=== PATIENT | female | born 1990 | race Caucasian/White ===

== ENCOUNTER 2019-05-03 11:21 | Emergency (ER) | payer BC, OTHER ==
[~2019-05-03] VITALS: Ht 160 cm; Wt 89.8 kg
[2019-05-03 11:30] VITALS: BP 119/82
== END 2019-05-03 12:36 | disposition home or self-care (01) ==
LOC: ED 12:30
DX: J02.8 Acute pharyngitis due to other specified organisms (principal); B97.89 Other viral agents as the cause of diseases classified elsewhere; E03.9 Hypothyroidism, unspecified; Z90.49 Acquired absence of other specified parts of digestive tract
CPT/HCPCS: 70360; 87081; 87880; 99284

== ENCOUNTER 2019-07-22 17:06 | Emergency (ER) | payer SELFPAY ==
[~2019-07-22] VITALS: Ht 160 cm; Wt 92.7 kg
[~2019-07-22 17:06] MED LIST: birth control PO; levothyroxine PO
--- NOTE | 2019-07-22 17:25 | NUR ---
THIS IS A 29 YEAR OLD FEMALE WHO C.O N/V, HEADACHE WITH STIFFNESS IN NECK X 4 DAYS. PT HAS HX OF MENIGITIES X 3 YEARS AGO
[2019-07-22] MEDS ORDERED: SODIUM CHLORIDE 0.9% 1,000 ML IV ONE (17:40)
[2019-07-22] MEDS ORDERED: ACETAMINOPHEN 500 MG TABLET ONE (17:50)
[2019-07-22] MEDS ORDERED: SODIUM CHLORIDE FLUSH 10ML SYR IVF ONE (18:00)
[2019-07-22] MEDS ORDERED: ACETAMINOPHEN 500 MG TABLET PO ONE (18:00)
[2019-07-22] MEDS ORDERED: SODIUM CHLORIDE 0.9% 1,000ML IVBOLUS ONE (18:00)
[2019-07-22 18:11] LABS: ALANINE AMINOTRANSFERASE 26 U/L (12-78); ALBUMIN 3.8 g/dL (3.4-5.0); ANION GAP 7 mmol/L (5-15); CALCIUM 8.7 mg/dL (8.5-10.1); CHLORIDE 108 mmol/L (98-107)
[2019-07-22 18:13] LABS: BASOPHILS # (AUTO) 0.01 x10^3/uL (0-0.1); BASOPHILS % (AUTO) 0 % (0-1); EOSINOPHILS % (AUTO) 1 % (1-7); LYMPHOCYTES # (AUTO) 0.46 x10^3/uL (1-3.4); LYMPHOCYTES % (AUTO) 4 % (22-44); MD NO; MEAN CORPUSCULAR HEMOGLOBIN 32.3 pg (27.0-34.8); MEAN CORPUSCULAR HGB CONC 34.1 g/dL (32.4-35.8); MEAN CORPUSCULAR VOLUME 94.7 fL (80-100); MEAN PLATELET VOLUME 8.7 fL (7.4-10.4); MONOCYTES # (AUTO) 0.22 x10^3/uL (0.2-0.8); MONOCYTES % (AUTO) 2 % (2-9); NEUTROPHILS # (AUTO) 11.28 x10^3/uL (1.8-6.8); NEUTROPHILS % (AUTO) 94 % (42-75); PLATELET COUNT 246 x10^3/uL (130-400); RED BLOOD COUNT 4.47 x10^6/uL (3.82-5.3); RED CELL DISTRIBUTION WIDTH 12.1 % (9.6-15.2)
[2019-07-22 18:15] LABS: ALKALINE PHOSPHATASE 92 U/L (45-117); BILIRUBIN,TOTAL 0.5 mg/dL (0.2-1.0); CREATININE 0.78 mg/dL (0.55-1.02); TOTAL PROTEIN 7.4 g/dL (6.4-8.2)
[2019-07-22 18:16] LABS: MICROSCOPIC INDICATED
[2019-07-22 18:17] LABS: CULTURE INDICATED? YES
[2019-07-22 18:28] LABS: RAPID INFLUENZA A Negative (Negative); RAPID INFLUENZA B Negative (Negative)
[2019-07-22] MEDS ORDERED: LIDOCAINE-MPF 1%, 5ML ONE (18:57)
--- NOTE | 2019-07-22 19:01 | NUR ---
RNx2 in hallway (bedside report restricted by isolation.) Received report of present concern, plan of care. Assumed patient care.
--- NOTE | 2019-07-22 19:32 | NUR ---
Midlevel and primary provider at bedside for lumbar puncture. Provided second pair of sterile gloves. Patient resting awaiting results of lumbar puncture labs and cmp/cbc
[2019-07-22 19:58] LABS: GLUCOSE, CSF 73 mg/dL (40-80); TOTAL PROTEIN,CSF 31 mg/dL (15-45)
[2019-07-22] MEDS ORDERED: KETOROLAC 30 MG/1 ML ONE (20:18)
--- NOTE | 2019-07-22 21:01 | NUR ---
Provided medication per MAR. Patient asking questions on results. Informed that laboratory still processing lumbar puncture fluid. Verbalized understanding. Patient disconnected from monitor, VSS. Ambulated well with friend to bathroom.
[2019-07-22 21:45] VITALS: BP 117/60
== END 2019-07-22 21:47 | disposition home or self-care (01) ==
LOC: ED 21:41
DX: N30.00 Acute cystitis without hematuria (principal); B34.9 Viral infection, unspecified; R73.9 Hyperglycemia, unspecified; R50.9 Fever, unspecified; R51 Headache
CPT/HCPCS: 36415; 62270; 80053; 81001; 82945; 83605; 84145; 84157; 84703; 85025; 87040; 87070; 87086; 87205; 87400; 89051; 99284; J7030

== ENCOUNTER 2019-08-24 21:12 | Emergency (ER) | payer MEDICAID, OTHER ==
[~2019-08-24] VITALS: Ht 160 cm; Wt 92.9 kg
[2019-08-24 21:21] VITALS: BP 148/89
--- NOTE | 2019-08-24 21:32 | NUR ---
PT C/O EXTERNAL RIGHT EAR PAIN FOR MANY YEARS, INTERMITTENTLY. PT NOTICED IT BEGIN TODAY. DENIES TRAUMA, DENIES HEARING CHANGES.
[2019-08-24] MEDS ORDERED: SULFAMETH./TRIMETHOPRIM DS 800MG/160MG TABLET ONE (21:53)
[2019-08-24] MEDS ORDERED: CEPHALEXIN 500 MG CAPSULE ONE (21:53)
--- NOTE | 2019-08-24 21:55 | NUR ---
[facility] ADMIN PER NOV.
[2019-08-24] MEDS ORDERED: SULFAMETH./TRIMETHOPRIM DS 800MG/160MG TABLET PO ONE (22:00)
[2019-08-24] MEDS ORDERED: CEPHALEXIN 500 MG CAPSULE PO ONE (22:00)
== END 2019-08-24 22:11 | disposition home or self-care (01) ==
LOC: ED 21:50
DX: L03.211 Cellulitis of face (principal); E78.5 Hyperlipidemia, unspecified; E03.9 Hypothyroidism, unspecified
CPT/HCPCS: 99283

== ENCOUNTER 2019-10-02 19:16 | Emergency (ER) | payer BC, OTHER ==
[~2019-10-02] VITALS: Ht 160 cm; Wt 83.0 kg
--- NOTE | 2019-10-02 19:32 | NUR ---
THIS IS A 29 YO FEMALE BIB [facility] FOR "I POURED SOME ICE AND DR. WALDRON IN TO A CUP AT HOME AND DRANK IT, IT TASTED FUNNY. I REALIZED I WAS DRINKING OUT OF A CUP MY MOM USUALLY USES TO KEEP CLEANING SUPPLIES IN. I THINK SHE USUALLY HAS BLEACH OR AJAX IN IT.". PATIENT C/O "FEELING WEIRD", SCRATCHY THROAT, NAUSEA, AND DIZZINESS. PER [facility], BLOOD SUGAR 129 EN ROUTE, VSS, WAS GIVEN 250 ML NS AND 4MG ZOFRAN EN ROUTE. VSS, NAD, ALL MONITORING IN PLACE, SINUS RHYTHM, EKG DONE IN ROOM. DENIES NEEDS AT THIS TIME
[2019-10-02 19:42] LABS: BASOPHILS # (AUTO) 0.05 x10^3/uL (0-0.1); BASOPHILS % (AUTO) 0 % (0-1); EOSINOPHILS # (AUTO) 0.11 x10^3/uL (0-0.4); EOSINOPHILS % (AUTO) 1 % (1-7); LYMPHOCYTES # (AUTO) 2.75 x10^3/uL (1-3.4); LYMPHOCYTES % (AUTO) 24 % (22-44); MD NO; MEAN CORPUSCULAR HEMOGLOBIN 31.2 pg (27.0-34.8); MEAN CORPUSCULAR HGB CONC 33.7 g/dL (32.4-35.8); MEAN CORPUSCULAR VOLUME 92.7 fL (80-100); MEAN PLATELET VOLUME 8.4 fL (7.4-10.4); MONOCYTES # (AUTO) 0.47 x10^3/uL (0.2-0.8); MONOCYTES % (AUTO) 4 % (2-9); NEUTROPHILS # (AUTO) 8.07 x10^3/uL (1.8-6.8); NEUTROPHILS % (AUTO) 71 % (42-75); PLATELET COUNT 276 x10^3/uL (130-400); RED BLOOD COUNT 4.35 x10^6/uL (3.82-5.3); RED CELL DISTRIBUTION WIDTH 12.2 % (9.6-15.2)
[2019-10-02 19:53] LABS: ALBUMIN 3.6 g/dL (3.4-5.0); ANION GAP 5 mmol/L (5-15); CALCIUM 8.8 mg/dL (8.5-10.1); CHLORIDE 108 mmol/L (98-107)
[2019-10-02 19:56] LABS: ALANINE AMINOTRANSFERASE 33 U/L (12-78); ALKALINE PHOSPHATASE 87 U/L (45-117); BILIRUBIN,TOTAL 0.3 mg/dL (0.2-1.0); CREATININE 0.62 mg/dL (0.55-1.02); TOTAL PROTEIN 7.2 g/dL (6.4-8.2)
--- NOTE | 2019-10-02 21:02 | NUR ---
AMBULATED WITH STEADY GAIT TO RESTROOM, VSS, PASSED PO CHALLENGE
--- NOTE | 2019-10-02 21:03 | NUR ---
TASK RN: PT AMBULATED STEADILY TO RESTROOM. DENIES N/V/DIFFICULTY BREATHING OR SWALLOWING. REPORTS LOCKETT, REQUESTING TYLENOL. ERP AWARE.
[2019-10-02] MEDS ORDERED: ACETAMINOPHEN 500 MG TABLET ONE (21:30)
[2019-10-02] MEDS ORDERED: ACETAMINOPHEN 325 MG TABLET PO ONE (21:30)
--- NOTE | 2019-10-02 21:43 | NUR ---
PATIENT MEDICATED PER [facility], TOLERATED WELL.
--- NOTE | 2019-10-02 22:07 | NUR ---
TASK RN: PT REPORTS SLIGHT IMPROVEMENT IN LOCKETT WITH TYLENOL AND IS REQUESTING DC. ERP AWARE. POC IS DC. PT OFF MONITORING. IV DC'D. PT UP INDEPENDENTLY TO DRESS.
[2019-10-02 22:10] VITALS: BP 115/83
== END 2019-10-02 22:22 | disposition home or self-care (01) ==
LOC: ED 20:23
DX: T49.2X1A Poisoning by local astringents and local detergents, accidental (unintentional), initial encounter (principal); E78.5 Hyperlipidemia, unspecified; Z90.49 Acquired absence of other specified parts of digestive tract; Y92.89 Other specified places as the place of occurrence of the external cause
CPT/HCPCS: 36415; 80053; 83690; 85025; 93005; 99283; 99284

== ENCOUNTER 2019-10-30 23:45 | Emergency (ER) | payer BC ==
[~2019-10-30] VITALS: Ht 160 cm; Wt 94.0 kg
--- NOTE | 2019-10-31 | NUR ---
PT RESTING IN [place] NOTED. PT REPORTS R SIDED HEAD PAIN "IT ISN'T A HEADACHE, IT FEELS LIKE ITS ITCHING" X ONE WEEK WITH WORSENING S/S X TWO HOURS. +PHOTOSENSITIVITY/NAUSEA. PT WITH RECENT HX OF MENINGITIS, SEEN IN ED FOR SAME APPROX ONE MONTH AGO. GROSS NEURO INTACT; FULL CERVICAL ROM. SPEECH CLEAR, FACE SYMMETRICAL. PT DENIES FEVER. BP/SPO2 MONITORING IN PLACE. SO AT BEDSIDE.
[2019-10-31] MEDS ORDERED: KETOROLAC 30 MG/1 ML ONE (00:11)
[2019-10-31] MEDS ORDERED: PROCHLORPERAZINE 5 MG/ML, 2ML ONE (00:11)
[2019-10-31] MEDS ORDERED: DIPHENHYDRAMINE 50 MG/ML, 1ML ONE (00:11)
[2019-10-31 00:22] VITALS: BP 136/87
--- NOTE | 2019-10-31 00:22 | NUR ---
IV ESTABLISHED. PT MEDICATED PER [facility] FOR LOCKETT, 05/05
[2019-10-31 00:24] LABS: BASOPHILS # (AUTO) 0.04 x10^3/uL (0-0.1); BASOPHILS % (AUTO) 0 % (0-1); EOSINOPHILS # (AUTO) 0.26 x10^3/uL (0-0.4); EOSINOPHILS % (AUTO) 2 % (1-7); LYMPHOCYTES # (AUTO) 4.23 x10^3/uL (1-3.4); LYMPHOCYTES % (AUTO) 36 % (22-44); MD NO; MEAN CORPUSCULAR HEMOGLOBIN 31.7 pg (27.0-34.8); MEAN CORPUSCULAR HGB CONC 34.4 g/dL (32.4-35.8); MEAN PLATELET VOLUME 8.6 fL (7.4-10.4); MONOCYTES # (AUTO) 0.68 x10^3/uL (0.2-0.8); MONOCYTES % (AUTO) 6 % (2-9); NEUTROPHILS # (AUTO) 6.54 x10^3/uL (1.8-6.8); NEUTROPHILS % (AUTO) 56 % (42-75); PLATELET COUNT 312 x10^3/uL (130-400); RED BLOOD COUNT 4.43 x10^6/uL (3.82-5.3); RED CELL DISTRIBUTION WIDTH 12.5 % (9.6-15.2)
[2019-10-31 00:27] LABS: ALBUMIN 3.7 g/dL (3.4-5.0); ANION GAP 10 mmol/L (5-15); CHLORIDE 106 mmol/L (98-107); CREATININE 0.73 mg/dL (0.55-1.02)
[2019-10-31] MEDS ORDERED: KETOROLAC 30 MG/1 ML IVPush ONE (00:30)
[2019-10-31] MEDS ORDERED: PROCHLORPERAZINE 5 MG/ML, 2ML IVPush ONE (00:30)
[2019-10-31] MEDS ORDERED: DIPHENHYDRAMINE 50 MG/ML, 1ML IVPush ONE (00:30)
--- NOTE | 2019-10-31 01:00 | NUR ---
PT RESTING IN GURNEY W/ EYES CLOSED. REGULAR/EVEN RESPIRATIONS NOTED. SPO2 >90% ON RA. PT EASILY ARROUSABLE TO VOICE AND REPORTS IMPROVEMENT IN PAIN.
--- NOTE | 2019-10-31 01:14 | NUR ---
POC IS DC. IV DC'D. PT OFF MONITORING AND ASKED TO DRESS
--- NOTE | 2019-10-31 01:25 | NUR ---
DC EDUCATION PROVIDED, PT DEMONSTRATES UNDERSTANDING. PT AMBULATED STEADILY TO DC WITH RN AND SO. SO TO TRANSPORT PT HOME.
== END 2019-10-31 01:27 | disposition home or self-care (01) ==
LOC: ED 10-31 00:19
DX: G44.219 Episodic tension-type headache, not intractable (principal); R11.0 Nausea; E78.5 Hyperlipidemia, unspecified; R73.9 Hyperglycemia, unspecified; E03.9 Hypothyroidism, unspecified; Z86.39 Personal history of other endocrine, nutritional and metabolic disease; Z90.49 Acquired absence of other specified parts of digestive tract
CPT/HCPCS: 36415; 80048; 82040; 84703; 85025; 96374; 96375; 99283; J0780; J1200; J1885

== ENCOUNTER 2019-11-11 22:44 | Emergency (ER) | payer BC ==
[~2019-11-11] VITALS: Ht 160 cm; Wt 94.1 kg
[2019-11-11 23:04] VITALS: BP 159/99
--- NOTE | 2019-11-12 01:11 | NUR ---
PT PROVIDED URINE SAMPLE AT THIS TIME. PT AWAITING ERMD EVAL. PT PLACED ON BP AND SPO2 MONITORS. AT BEDSIDE.
[2019-11-12] MEDS ORDERED: KETOROLAC 30 MG/1 ML IM ONE (01:30)
[2019-11-12] MEDS ORDERED: METHOCARBAMOL 750 MG TABLET PO ONE (01:30)
[2019-11-12 01:41] LABS: HCG UR SG 1.019 (1.003-1.030)
[2019-11-12] MEDS ORDERED: METHOCARBAMOL 750 MG TABLET ONE (01:48)
[2019-11-12] MEDS ORDERED: KETOROLAC 30 MG/1 ML ONE (01:49)
== END 2019-11-12 02:39 | disposition home or self-care (01) ==
LOC: ED 11-12 01:56
DX: R51 Headache (principal); R20.2 Paresthesia of skin; E78.5 Hyperlipidemia, unspecified; E03.9 Hypothyroidism, unspecified; Z90.49 Acquired absence of other specified parts of digestive tract
CPT/HCPCS: 70450; 81025; 96372; 99284; J1885